=== PATIENT | female | born 1980 | race Two or more races ===

== ENCOUNTER → 2019-05-23 | Day surgery (SDC) | payer OTHER ==
[2019-05-19 14:08] LABS: Basophils # (auto) 0 uL; Basophils % (auto) 0.4 % (0.0-2.0); Eosinophils # (auto) 0.3 uL; Eosinophils % (auto) 2.7 % (0.0-7.0); Hematocrit 41.2 % (36.0-46.0); Hemoglobin 13.8 g/dL (12.2-16.2); Lymphocytes # (auto) 2.7 uL; Lymphocytes % (auto) 29.1 % (10.0-50.0); Mean Corpuscular Hgb Conc. 33.5 g/dL (32.0-36.0); Mean Corpuscular Volume 89.6 fL (80.0-100.0); Monocytes # (auto) 0.8 uL; Monocytes % (auto) 8.4 % (0.0-12.0); Neutrophils # (auto) 5.5 uL; Neutrophils % (auto) 59.4 % (37.0-80.0); Platelet Count (auto) 326 10^3/uL (140-450); Red Cell Distribution Width 13.3 % (11.8-14.3); White Blood Cell 9.3 10^3/uL (4.4-10.8)
[2019-05-19 14:12] LABS: Urine Bacteria FEW /hpf (None Seen); Urine Blood Negative /uL (Negative); Urine Mucus FEW (None Seen); Urine Specific Gravity 1.023 (1.001-1.035); Urine WBC 2 /hpf (0 - 5)
[2019-05-19 14:23] LABS: INR 1.05 (0.9-1.15); Partial Thromboplastin Time 27.5 sec (23.64-32.05)
[2019-05-19 14:37] LABS: Albumin 4.1 g/dL (3.4-5.0); Calcium 8.9 mg/dL (8.5-10.1); Potassium 3.5 mmol/L (3.5-5.1)
[2019-05-19 14:40] LABS: BUN/Creatinine Ratio 13.9
[2019-05-19 14:43] LABS: Bilirubin, Total 0.4 mg/dL (0.2-1.0); Total Protein 8.3 g/dL (6.4-8.2)
[~2019-05-23] VITALS: Ht 157.5 cm; Wt 69.4 kg
[~2019-05-23] MED LIST: CIPROFLOXACIN 400MG/200ML 200 ML IV ONE; CONJ ESTROGENS 0.625MG/GM VAG CRM 30GM PV ONE; HYDROmorphone HCL 2 MG/ML VL IV PRN; KETOROLAC TROMETH 15 mg/ml 1ML VL IV ONE; LIDOCAINE HCL 2% TOP JELLY 5ML TOP ONE; LIDOCAINE W/ EPINEPHRINE 1% 20ML VIAL ONE; METOCLOPRAMIDE HCL 5MG/ml INJ 2ml VIAL IV PRN; MIDAZOLAM HCL 1MG/1ML-2 ML VIAL ONE; MORPHINE SULFATE 4 MG/ML SYR/VIAL IV PRN; ONDANSETRON HCL 4 MG/2 ML VIAL ONE; PROPOFOL 10 MG/ML 20 ML IV ONE; SODIUM CHLORIDE LOCK 10 ML ONE; ceFAZolin 1GM VL ONE; fentaNYL CITRATE 100 MCG/2 ML VL IV PRN; fentaNYL CITRATE 100 MCG/2 ML VL ONE
[2019-05-23 15:54] VITALS: BP 107/72
== END | disposition home or self-care (01) ==
LOC: SUR 09:44
PROVIDERS: ATTEND Urology
DX: N39.3 Stress incontinence (female) (male) (principal); D64.9 Anemia, unspecified; Z88.0 Allergy status to penicillin; Z98.51 Tubal ligation status
CPT/HCPCS: 36415; 57288; 80053; 81001; 84702; 85025; 85610; 85730; C1763; J0690; J0744; J2250; J2405; J2704; J2765; J3010

== ENCOUNTER → 2019-06-09 | Outpatient (CLI) | payer OTHER | END | disposition home or self-care (01) | LOC: LAB 12:03 | PROVIDERS: ATTEND Urology | DX: N39.0 Urinary tract infection, site not specified (principal) | CPT/HCPCS: 87086 ==